=== PATIENT | male | born 1940 | race Caucasian/White ===

== ENCOUNTER → 2016-06-15 | Outpatient (CLI) | payer OTHER ==
[~2016-06-15] MED LIST: GADOBUTROL 10 ML VIAL IVP ONE
== END ==
LOC: FIMAGING 06:28
PROVIDERS: ATTEND Internal Medicine Hematology & Oncology
DX: Z08 Encounter for follow-up examination after completed treatment for malignant neoplasm (principal); C49.21 Malignant neoplasm of connective and soft tissue of right lower limb, including hip
CPT/HCPCS: 73720; A9585

== ENCOUNTER 2016-09-17 11:39 | Emergency (ER) | payer OTHER ==
[2016-09-17 11:52] VITALS: TEMP 98.1
[2016-09-17] MEDS ORDERED: NS 1,000 ML IV ONE (11:58)
--- NOTE | 2016-09-17 12:03 | EDPHY ---
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 He states that it is sharp and he was worried about his appendix. He has not had a fever. No flank pain or back pain. No radiation of the pain down to his testicle. No urinary difficulty. He does have a history of right inguinal hernia repair. 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 Also atrial fibrillation. He is hypoxic and dusky appearing but states that this is his baseline. He denies any increasing shortness of breath at rest or exertion. No recent fevers or worsening cough. REVIEW OF SYSTEMS: Constitutional: denies: chills, fever, recent illness, recent injury EENTM: denies: blurred vision, double vision, nose congestion Respiratory: denies: cough, shortness of breath Cardiac: denies: chest pain, irregular heart rate, lightheadedness, palpitations Gastrointestinal/Abdominal: See HPI denies: diarrhea, nausea, vomiting, blood streaked stools Genitourinary: denies: dysuria, frequency, hematuria, Musculoskeletal: denies: joint pain, muscle pain Skin: denies: lesions, rash, jaundice, bruising Neurological: denies: headache, numbness, paresthesia, tingling, dizziness, weakness Hematologic/Lymphatic: denies: blood clots, easy bleeding, easy bruising Immunologic/allergic: denies: HIV/AIDS, transplant EXAM: GENERAL: Obese, dusky appearing in extremities HEAD: Atraumatic, normocephalic. EYES: Pupils equal round and reactive to light, extraocular movements intact, sclera anicteric, conjunctiva are normal. ENT: TMs normal, nares patent, oropharynx clear without exudates. Moist mucous membranes. NECK: Normal range of motion, supple without lymphadenopathy or JVD. LUNGS: Breath sounds clear to auscultation bilaterally and equal. No wheezes rales or rhonchi. HEART: Regular rate and rhythm without murmurs, rubs or gallops. ABDOMEN: Right lower quadrant tenderness that is intermittent. No palpable hernia. normoactive bowel sounds. No guarding, no rebound. No masses appreciated. BACK: No CVA tenderness, no spinal tenderness, step-offs or deformities EXTREMITIES: Normal range of motion, no pitting or edema. No clubbing or cyanosis. NEUROLOGICAL: Cranial nerves II through XII grossly intact. Normal speech, normal gait. 5/5 strength, normal movement in all extremities, normal sensation PSYCH: Normal mood, normal affect. SKIN: Warm, dry, normal turgor, no visible rashes or lesions. Source: Patient Exam Limitations: No limitations - Medical/Surgical History Hx Chronic Respiratory Disease: Yes Hx Diabetes: No Hx Cardiac Disease: Yes Hx Renal Disease: No Hx Cirrhosis: No Hx Alcoholism: No Other PMH: Severe COPD with oxygen dependence and hypoxia, Afib, hernia repair, HTN, myxofibrosarcoma right thigh, hypertension - Family History Significant Family History: Hypertension - Social History Smoking Status: Former smoker Alcohol Use: Sober Drug Use: None Constitutional: Initial Vital Signs Temperature (C) 36.7 C 09/17/16 11:48 Heart Rate 111 H 09/17/16 11:48 Respiratory Rate 22 H 09/17/16 11:48 Blood Pressure 119/72 09/17/16 11:48 O2 Sat (%) 80 L 09/17/16 11:48 O2 Delivery Mode Nasal Cannula O2 (L/minute) 5 Allergies/Adverse Reactions: No Known Allergies Allergy (Unverified 09/17/16 11:48) Home Medications: Medication Instructions Recorded Albuterol Sulfate [ALBUTEROL 0.83 09/17/16 SULFATE] Aspirin 81mg (*) 09/17/16 Lisinopril/Hctz 20/12.5MG 09/17/16 Multi-Day Vitamins 09/17/16 Pulmicort 0.25MG/2Ml Neb (*) 09/17/16 Spiriva Inhaler (RX) 09/17/16 Vitamin B12 09/17/16 Vitamin D3 09/17/16 Medical Decision Making - Diagnostics Imaging Results: Imaging Impressions Abdomen CT 09/17/16 12:39 Impression: 1. No acute findings. 2. Diverticulosis without evidence of diverticulitis. 3. Pleural thickening with pleural calcification in the left chest, with mild interstitial prominence of the lower lobes. Consider CT chest for further follow up. 4. Stable right lower lobe nodular opacity since 2011 with interval stability compatible with a benign etiology. 5. Additional findings as above. Findings discussed with Ton Carreno 09/17/2016, at 1336 hours. Imaging: Discussed imaging studies w/ call or contact centre team leader Radiologist ED Course/Re-evaluation: We discussed the lab and imaging results which are very reassuring. The patient has no upper abdominal pain or left-sided abdominal pain. His right- sided inguinal pain is now resolved. He states that he has been lifting 40 lb bags of fertilizer may have pulled a muscle. Encouraged rest and hydration and re-evaluation if he continues to have pain within the next 48 hours. The patient understands and agrees with this plan. Declines further workup or testing is eager to go home. He remains slightly hypoxic and cyanotic but he states that this is baseline and he does not wish to be tested any further for this. Differential Diagnosis: Partial list of the Differential diagnosis considered include but were not limited to; appendicitis, hernia, kidney stone and although unlikely based on the history and physical exam, I also considered biliary disease, diverticulitis , obstruction, abscess, ischemia, dissection, pneumonia, PE, COPD exacerbation, acute coronary disease. I discussed these differential diagnoses and the plan with the patient as well as the usual and expected course. The patient understands that the diagnosis is provisional and that in medicine we are not always correct and that further workup is often warranted. Usual and customary warnings were given. All of the patient's questions were answered. The patient was instructed to return to the emergency department should the symptoms at all worsen or return, otherwise to followup with the physician as we discussed. - Data Points Laboratory Results: Laboratory Results 09/17/16 12:00 09/17/16 12:00 09/17/16 09/17/16 09/17/16 12:20 12:00 12:00 WBC RBC Hgb Hct MCV MCH MCHC RDW Plt Count MPV Neut % (Auto) Lymph % (Auto) Reagan % (Auto) Eos % (Auto) Baso % (Auto) Nucleat RBC Rel Count Absolute Neuts (auto) Absolute Lymphs (auto) Absolute Monos (auto) Absolute Eos (auto) Absolute Basos (auto) Absolute Nucleated RBC Immature Gran % Immature Gran # PT 12.9 SEC SEC (12.0-15.0) INR 1.00 (0.83-1.16) APTT 34.0 SEC SEC (23.0-38.0) Sodium 140 mEq/L mEq/L (134-144) Potassium 4.2 mEq/L mEq/L (3.5-5.2) Chloride 103 mEq/L mEq/L (97-110) Carbon Dioxide 25 mEq/l mEq/l (22-31) Anion Gap 12 mEq/L mEq/L (8-16) BUN 15 mg/dL mg/dL (7-23) Creatinine 0.7 mg/dL mg/dL (0.7-1.3) Estimated GFR > 60 Glucose 106 mg/dL H mg/dL (70-100) Calcium 9.8 mg/dL mg/dL (8.5-10.4) Total Bilirubin 2.0 mg/dL H mg/dL (0.1-1.4) Conjugated Bilirubin 0.4 mg/dL mg/dL (0.0-0.5) Unconjugated Bilirubin 1.6 mg/dL H mg/dL (0.0-1.1) AST 22 IU/L IU/L (17-59) ALT 27 IU/L IU/L (21-72) Alkaline Phosphatase 66 IU/L IU/L (38-126) Total Protein 7.6 g/dL g/dL (6.3-8.2) Albumin 4.1 g/dL g/dL (3.5-5.0) Lipase 138.0 IU/L IU/L (23-300) Urine Color YELLOW Urine Appearance CLEAR Urine pH 6.0 (5.0-7.5) Ur Specific [place] 1.010 (1.002-1.030) Urine Protein NEGATIVE (NEGATIVE) Urine Ketones NEGATIVE (NEGATIVE) Urine Blood NEGATIVE (NEGATIVE) Urine Nitrate NEGATIVE (NEGATIVE) Urine Bilirubin NEGATIVE (NEGATIVE) Urine Urobilinogen 0.2 EU EU (0.2-1.0) Ur Leukocyte Esterase NEGATIVE (NEGATIVE) Urine RBC 1-3 /hpf /hpf (0-3) Urine WBC 3-5 /hpf H /hpf (0-3) Ur Epithelial Cells TRACE /lpf /lpf (NONE-1+) Urine Bacteria TRACE /hpf H /hpf (NONE SEEN) Hyaline Casts 5-10 /lpf H /lpf (0-1) Urine Mucus 1+ /lpf /lpf (NONE-1+) Urine Glucose NEGATIVE (NEGATIVE) 09/17/16 12:00 WBC 7.79 10^3/uL 10^3/uL (3.80-9.50) RBC 6.85 10^6/uL H 10^6/uL (4.40-6.38) Hgb 18.6 g/dL H g/dL (13.7-17.5) Hct 57.5 % H % (40.0-51.0) MCV 83.9 fL fL (81.5-99.8) MCH 27.2 pg L pg (27.9-34.1) MCHC 32.3 g/dL L g/dL (32.4-36.7) RDW 16.1 % H % (11.5-15.2) Plt Count 279 10^3/uL 10^3/uL (150-400) MPV 10.5 fL fL (8.7-11.7) Neut % (Auto) 67.4 % % (39.3-74.2) Lymph % (Auto) 22.6 % % (15.0-45.0) Reagan % (Auto) 8.6 % % (4.5-13.0) Eos % (Auto) 0.5 % L % (0.6-7.6) Baso % (Auto) 0.8 % % (0.3-1.7) Nucleat RBC Rel Count 0.0 % % (0.0-0.2) Absolute Neuts (auto) 5.25 10^3/uL 10^3/uL (1.70-6.50) Absolute Lymphs (auto) 1.76 10^3/uL 10^3/uL (1.00-3.00) Absolute Monos (auto) 0.67 10^3/uL 10^3/uL (0.30-0.80) Absolute Eos (auto) 0.04 10^3/uL 10^3/uL (0.03-0.40) Absolute Basos (auto) 0.06 10^3/uL 10^3/uL (0.02-0.10) Absolute Nucleated RBC 0.00 10^3/uL 10^3/uL (0-0.01) Immature Gran % 0.1 % % (0.0-1.1) Immature Gran # 0.01 10^3/uL 10^3/uL (0.00-0.10) PT INR APTT Sodium Potassium Chloride Carbon Dioxide Anion Gap BUN Creatinine Estimated GFR Glucose Calcium Total Bilirubin Conjugated Bilirubin Unconjugated Bilirubin AST ALT Alkaline Phosphatase Total Protein Albumin Lipase Urine Color Urine Appearance Urine pH Ur Specific [place] Urine Protein Urine Ketones Urine Blood Urine Nitrate Urine Bilirubin Urine Urobilinogen Ur Leukocyte Esterase Urine RBC Urine WBC Ur Epithelial Cells Urine Bacteria Hyaline Casts Urine Mucus Urine Glucose Medications Given: Discontinued Medications Sodium Chloride (Ns) 1,000 mls @ 0 mls/hr IV ONCE ONE; Wide Open PRN Reason: Protocol Stop: 09/17/16 11:59 Last Admin: 09/17/16 12:20 Dose: 1,000 mls Departure - Departure Disposition: Home, Routine, Self-Care Clinical Impression: Abdominal pain Qualifiers: Abdominal location: right lower quadrant Qualified Code(s): R10.31 - Right lower quadrant pain Condition: Fair Instructions: Acute Abdominal Pain (ED) Referrals: Kelli Loera [Primary Care Provider] - As per Instructions
[2016-09-17 12:12] LABS: % IMMATURE GRANULYOCYTES 0.1 % (0.0-1.1); ABSOLUTE IMMATURE GRANULOCYTES 0.01 10^3/uL (0.00-0.10); ADD DIFF? NO; ADD MORPH? NO; ADD SCAN? NO; ATYPICAL LYMPHOCYTE FLAG 0 (0-99); FRAGMENT RBC FLAG 0 (0-99); HEMATOCRIT 57.5 % (40.0-51.0); HEMOGLOBIN 18.6 g/dL (13.7-17.5); LEFT SHIFT FLG 0 (0-99); LIPEMIA HEMOLYSIS FLAG 80 (0-99); MEAN CELL HEMOGLOBIN 27.2 pg (27.9-34.1); MEAN CELL HEMOGLOBIN CONCENTR. 32.3 g/dL (32.4-36.7); MEAN CELL VOLUME 83.9 fL (81.5-99.8); MEAN PLATELET VOLUME 10.5 fL (8.7-11.7); PLATELET CLUMPS FLAG 0 (0-99); PLATELET COUNT 279 10^3/uL (150-400); RED BLOOD CELL COUNT 6.85 10^6/uL (4.40-6.38); RED CELL DISTRIBUTION WIDTH 16.1 % (11.5-15.2)
[2016-09-17 12:24] LABS: PROTIME(PATIENT) 12.9 SEC (12.0-15.0)
[2016-09-17 12:27] LABS: ALANINE AMINOTRANSFERASE 27 IU/L (21-72); ALBUMIN 4.1 g/dL (3.5-5.0); ALKALINE PHOSPHATASE 66 IU/L (38-126); ANION GAP 12 mEq/L (8-16); ASPARTATE AMINOTRANSFERASE 22 IU/L (17-59); BILIRUBIN-CONJUGATED 0.4 mg/dL (0.0-0.5); BILIRUBIN-UNCONJUGATED 1.6 mg/dL (0.0-1.1); CALCIUM 9.8 mg/dL (8.5-10.4); CARBON DIOXIDE 25 mEq/l (22-31); CHLORIDE 103 mEq/L (97-110); CREATININE 0.7 mg/dL (0.7-1.3); GLOMERULAR FILTRATION RATE > 60; GLUCOSE 106 mg/dL (70-100); POTASSIUM 4.2 mEq/L (3.5-5.2); SODIUM 140 mEq/L (134-144); TOTAL PROTEIN 7.6 g/dL (6.3-8.2)
[2016-09-17 12:27] LABS: COLOR YELLOW; LEUKOCYTE ESTERASE,URINE NEGATIVE (NEGATIVE); NITRITE,URINE NEGATIVE (NEGATIVE)
[2016-09-17 12:45] LABS: BACTERIA TRACE /hpf (NONE SEEN); MUCUS 1+ /lpf (NONE-1+)
[2016-09-17] MEDS ORDERED: IOPAMIDOL (ISOVUE-300) 100 ML BTL ONE ×3 (12:49→12:50)
[2016-09-17 14:09] VITALS: BP 117/74; PULSE 78; RESP 18; O2SAT 91
== END 2016-09-17 13:47 | disposition home or self-care (01) ==
LOC: CED 11:39
DX: R10.31 Right lower quadrant pain (principal); J44.9 Chronic obstructive pulmonary disease, unspecified; I10 Essential (primary) hypertension; E86.9 Volume depletion, unspecified; Z79.82 Long term (current) use of aspirin; Z87.891 Personal history of nicotine dependence
CPT/HCPCS: 74177; 96360; 99285; Q9967; 80048-PO; 80076-PO; 81003-PO; 81015-PO; 83690-PO; 85025-PO; 85610-PO; 85730-PO

== ENCOUNTER → 2016-12-21 | Outpatient (CLI) | payer OTHER | LOC: FIMAGING 09:49 | PROVIDERS: ATTEND Internal Medicine Hematology & Oncology | DX: Z08 Encounter for follow-up examination after completed treatment for malignant neoplasm (principal); Z85.831 Personal history of malignant neoplasm of soft tissue | CPT/HCPCS: 73720; A9585 ==

== ENCOUNTER → 2017-06-24 | Outpatient (CLI) | payer OTHER | LOC: FIMAGING 12:40 | PROVIDERS: ATTEND Internal Medicine Hematology & Oncology | DX: C49.9 Malignant neoplasm of connective and soft tissue, unspecified (principal) | CPT/HCPCS: 73720; A9585 ==

== ENCOUNTER 2018-07-07 12:35 | Inpatient (IN) | payer OTHER ==
[2018-07-07] MEDS ORDERED: FUROSEMIDE 40 MG/4 ML VIAL IVP ONE ×2 (12:53→18:00)
--- NOTE | 2018-07-07 12:55 | EDPHY ---
H & P Stated Complaint: SOB Time Seen by Provider: 07/07/18 12:46 HPI/ROS: HPI CHIEF COMPLAINT: Shortness of breath, low oxygen level. 50% sat. HISTORY OF PRESENT ILLNESS: Patient is a 77-year-old male, he presents emergency room shortness of breath and low oxygen saturation. He apparently had a a oxygen saturation of 50% at his primary care doctor's office. He went to his primary care doctor's office today for bilateral lower extremity swelling. At the you doctor's office he was noted to be short of breath and labored breathing. O2 sat of 50%. He arrives to the emergency room and has an O2 sat of 50%. He has labored breathing. He initially went to his primary care doctor's office for bilateral lower extremity edema this progressively got worse over the past week. Is also noted that his weight is 223 lb. He typically runs 211 lb. Past Medical History: COPD on a 8L nasal cannula at baseline, significant medical history for hypertension, COPD rather severe, AFib Past Surgical History: No recent surgery Social History: Lives locally, at bedside. Family History: Noncontributory ROS REVIEW OF SYSTEMS: 10 Systems were reviewed and negative with the exception of the elements mentioned in the history of present illness. Exam Constitutional respiratory distress, triage nursing summary reviewed, vital signs reviewed, awake/alert. Initial sat 50%. 8 L nasal cannula. Eyes normal conjunctivae and sclera, EOMI, PERRLA. HENT normal inspection, atraumatic, moist mucus membranes, no epistaxis, neck supple/ no meningismus, no raccoon eyes. Respiratory moderate distress, decreased breath sounds bilaterally, crackles at the bases bilaterally, Cardiovascular rate normal, regular rhythm, no murmur, no edema, distal pulses normal. Gastrointestinal soft, non-tender, no rebound, no guarding, normal bowel sounds, no distension, no pulsatile mass. Genitourinary no CVA tenderness. Musculoskeletal bilateral lower extremity pitting edema, no midline vertebral tenderness, full range of motion, no calf swelling, no tenderness of extremities , no meningismus, good pulses, neurovascularly intact. Skin pink, warm, & dry, no rash, skin atraumatic. Neurologic awake, alert and oriented x 3, AAOx3, moves all 4 extremities equally, motor intact, sensory intact, CN II-XII intact, normal cerebellar, normal vision, normal speech. Psychiatric normal mood/affect. Heme/Lymph/Immune no lymphadenopathy. Differential Diagnosis: Includes but is not limited to in a particular order respiratory failure, who acute hypoxic respiratory failure, pulmonary edema, pneumonia, CHF, COPD, PE, ACS Medical Decision Making: Plan for this patient IV establishment with blood draw , blood cultures, lactic acid, BiPAP, ABG, EKG, troponin, chest x-ray. Re-evaluation: EKG interpretation by me on record in [facility] system. Impression time of EKG 12:54 p.m. Sinus tach [address] depression V1 V2 V3 most likely demand ischemia and hypoxia ST depression Due to patient's respiratory distress, breathing 30 times a minute, hypoxic requiring a non-rebreather patient been placed on BiPAP. Current BiPAP settings 14/7, FiO2 40%, rate of 18. ABG pending. In-line neb ordered. Chest x-ray reviewed one-view cardiomegaly, bilateral pleural effusions, pulmonary edema. 1336: Patient on full face BiPAP resting comfortably no acute distress. Chest x-ray shows significant amount of edema. IV Lasix 40 mg ordered. Plan for admission to the ICU on full face BiPAP. Critical Care: Total Critical Care Time Spent Managing this Patient: 65 Minutes. This time was spent Exclusively with this patient. This Care was exclusive of procedures. The Organ System/life at risk was respiratory failure This Patient was in Critical Condition because respiratory failure, hypoxic respiratory failure, CHF, COPD I spoke with the hospitalist service and agreed admit to the intensive care unit on full face BiPAP. Dr. Spicer. 1400 I did re-evaluate the patient is resting comfortably he is comfortable on BiPAP. His current vitals heart rate 133, pulse ox 90% on BiPAP FiO2 of 40%, Blood pressure 114/91. No distress. Good air movement bilaterally with bipap Chest x-ray concerning for decompensated heart failure in the setting of COPD at baseline. Troponin negative. EKG interpretation by me on record in [employer] system. Impression time of EKG 1404 this is a repeat EKG sinus tach 133, RVH present. Subtle ST depression V1 V2 V3. No ST elevation Source: Patient - Personal History Current Tetanus/Diphtheria Vaccine: Yes Current Tetanus Diphtheria and Acellular Pertussis (TDAP): Yes - Medical/Surgical History Hx Chronic Respiratory Disease: Yes Hx Diabetes: No Hx Cardiac Disease: Yes Hx Renal Disease: No Hx Cirrhosis: No Hx Alcoholism: No Other PMH: Severe COPD with oxygen dependence and hypoxia, Afib, hernia repair, HTN, myxofibrosarcoma right thigh, hypertension - Social History Smoking Status: Former smoker Constitutional: Initial Vital Signs Heart Rate 130 H 07/07/18 12:46 Respiratory Rate 20 07/07/18 12:46 Blood Pressure 121/81 H 07/07/18 12:46 O2 Sat (%) 84 L 07/07/18 12:46 O2 Delivery Mode Bi-Pap O2 (L/minute) 8 Allergies/Adverse Reactions: No Known Allergies Allergy (Verified 07/07/18 13:35) Home Medications: Medication Instructions Recorded Aspirin [Aspirin 81mg (*)] 81 mg PO DAILY 09/17/16 Cholecalciferol Vit D3 [Vitamin D3 5,000 units PO DAILY 09/17/16 (*)] Cyanocobalamin [Vitamin B12 (*)] 1,000 mcg PO DAILY 09/17/16 Lisinopril/Hctz 20/12.5MG 1 ea PO DAILY 09/17/16 [Zestoretic/Prinzide 20/12.5MG (*)] Tiotropium Inhaler [Spiriva 1 inh IH DAILY 09/17/16 Inhaler] Albuterol [Proventil Neb] 3 ml IH DAILY 07/07/18 Fluticasone/Vilanterol [Breo 1 each IH DAILY 07/07/18 Ellipta 200-25 Mcg INH] guaiFENesin [Mucinex 600 MG (*)] 600 mg PO BID 07/07/18 Medical Decision Making - Data Points Laboratory Results: Laboratory Results 07/07/18 13:00 07/07/18 13:00 Microbiology Results: MICROBIOLOGY 07/07/18 13:00 Blood Blood Culture - Preliminary 07/07/18 13:00 Blood Blood Culture - Preliminary Medications Given: Albuterol (Proventil Neb) 3 ml IH Q2HRS PRN PRN Reason: Short of Breath/Dyspnea Stop: 01/03/19 14:19 Last Admin: 07/09/18 08:45 Dose: 3 ml Aspirin (Aspirin) 81 mg PO DAILY GERTRUDIS Stop: 01/04/19 08:59 Last Admin: 07/09/18 13:01 Dose: 81 mg Enoxaparin Sodium (Lovenox) 100 mg SC BID GERTRUDIS Stop: 07/10/18 07:00 Last Admin: 07/09/18 08:34 Dose: 100 mg Guaifenesin (Mucinex) 600 mg PO BID GERTRUDIS Stop: 01/03/19 20:59 Last Admin: 07/09/18 10:58 Dose: Not Given Lisinopril/HCTZ (Zestoretic) 1 ea PO DAILY GERTRUDIS Stop: 01/04/19 08:59 Last Admin: 07/09/18 13:04 Dose: 1 ea Miscellaneous Medication (Fluticasone/Vilanterol [Breo Ellipta 200-25 Mcg Inh]) 1 each IH DAILY GERTRUDIS Stop: 01/04/19 08:59 Last Admin: 07/09/18 08:46 Dose: 1 inh Tiotropium [place] (Spiriva Handihaler) 18 mcg IH DAILY GERTRUDIS Stop: 01/04/19 08:59 Last Admin: 07/09/18 08:46 Dose: 1 inh Discontinued Medications Albuterol/Ipratropium (Duoneb) 3 ml IH EDNOW ONE Stop: 07/07/18 12:58 Last Admin: 07/07/18 13:21 Dose: 3 ml Amiodarone HCl (Amiodarone Hcl) 200 mg PO ONCE ONE Stop: 07/09/18 15:16 Last Admin: 07/09/18 17:17 Dose: 200 mg Enoxaparin Sodium (Lovenox) 40 mg SC DAILY GERTRUDIS Stop: 01/04/19 08:59 Last Admin: 07/08/18 08:14 Dose: 40 mg Enoxaparin Sodium (Lovenox) 60 mg SC ONCE ONE Stop: 07/08/18 10:46 Last Admin: 07/08/18 11:10 Dose: 60 mg Famotidine (Pepcid) 20 mg PO BID GERTRUDIS Stop: 01/04/19 08:59 Last Admin: 07/08/18 08:13 Dose: 20 mg Furosemide (Lasix Injection) 40 mg IVP EDNOW ONE Stop: 07/07/18 12:54 Last Admin: 07/07/18 13:14 Dose: 40 mg Furosemide (Lasix Injection) 40 mg IVP ONCE ONE Stop: 07/07/18 18:01 Last Admin: 07/07/18 17:01 Dose: 40 mg Furosemide (Lasix Injection) 40 mg IVP ONCE ONE Stop: 07/08/18 11:28 Last Admin: 07/08/18 12:21 Dose: 40 mg Famotidine/Sodium Chloride (Pepcid 20 Mg (Premix)) 50 mls @ 200 mls/hr IV Q12HRS GERTRUDIS Stop: 01/03/19 20:59 Last Admin: 07/07/18 21:43 Dose: 50 mls Amiodarone HCl (Amiodarone Hcl) 100 mls @ 600 mls/hr IV ONCE ONE Stop: 07/08/18 15:41 Last Admin: 07/08/18 15:45 Dose: 100 mls Amiodarone HCl (Amiodarone Hcl) 200 mls @ 33.333 mls/hr IV ONCE ONE Stop: 07/08/18 21:31 Last Admin: 07/08/18 15:46 Dose: 200 mls Amiodarone HCl 540 mg/ (Dextrose) 300 mls @ 16.667 mls/hr IV ONCE ONE Stop: 07/09/18 15:29 Last Admin: 07/08/18 20:48 Dose: 300 mls Methylprednisolone Sodium Succinate (Solu-Medrol) 125 mg IVP EDNOW ONE Stop: 07/07/18 13:08 Last Admin: 07/07/18 13:14 Dose: 125 mg Point of Care Test Results: Chemistry 07/07/18 13:05 POC Troponin I 0.03 ng/mL ng/mL (0.00-0.08) Departure - Departure Disposition: [facility] Clinical Impression: Respiratory failure Qualifiers: Chronicity: acute Respiratory failure complication: hypoxia Qualified Code(s): J96.01 - Acute respiratory failure with hypoxia COPD (chronic obstructive pulmonary disease) Qualifiers: COPD type: unspecified COPD Qualified Code(s): J44.9 - Chronic obstructive pulmonary disease, unspecified CHF (congestive heart failure) Qualifiers: Heart failure type: other Qualified Code(s): I50.9 - Heart failure, unspecified Condition: Critical
[2018-07-07] MEDS ORDERED: IPRATROPIUM/ALBUTEROL 3 ML DEYVIAL IH ONE (12:57)
[2018-07-07] MEDS ORDERED: methylPREDNISolone SOD SUCC 125 MG/2 ML VIAL IVP ONE (13:07)
[2018-07-07 13:14] LABS: PLATELET COUNT 208 10^3/uL (150-400)
[2018-07-07 13:29] LABS: INR 1.17 (0.83-1.16); PROTIME(PATIENT) 14.4 SEC (12.0-15.0)
[2018-07-07] MEDS ORDERED: ACETAMINOPHEN 325 MG TAB PO PRN (14:17)
--- NOTE | 2018-07-07 14:57 | PDGENHP ---
History and Physical - Chief Complaint leg swelling, hypoxia - History of Present Illness 77yo M with history of COPD, pulmonary hypertension, PFO, chronic O2 dependence who presents from his PCP clinic to the ED with leg swelling and hypoxia. He went to his PCP's office today because he has had 8 days of worsening bilateral leg swelling. At his PCP's office he had oxygen saturations in the 50s and was sent to the ED. His O2 saturation on arrival was also in the 50s on his baseline 9L of supplemental oxygen and appeared in distress. He was then placed on bipap with improvement in oxygenation. A chest x-ray shows prominence of pulmonary vasculature and a small left pleural effusion. He was given 40mg IV lasix and is being admitted for further management. He denies any recent fevers , chills, or change in cough (has baseline cough productive of yellow sputum). He denies chest pain, palpitations, orthopnea, or PND. He has not been on lasix in the past. Of note, his oxygen saturations are typically 82-86% at rest and in the 70s with exertion on 9L of oxygen at home. His reports having to increase from 5L to 8-9L last summer. History Information - Allergies/Home Medication List Allergies/Adverse Reactions: No Known Allergies Allergy (Verified 07/07/18 13:35) Home Medications: Aspirin [Aspirin 81mg (*)] 81 mg PO DAILY 09/17/16 [Last Taken 07/07/18] Cholecalciferol Vit D3 [Vitamin D3 (*)] 5,000 units PO DAILY 09/17/16 [Last Taken 07/07/18] Cyanocobalamin [Vitamin B12 (*)] 1,000 mcg PO DAILY 09/17/16 [Last Taken ] Lisinopril/Hctz 20/12.5MG [Zestoretic/Prinzide 20/12.5MG (*)] 1 ea PO DAILY [Last Taken 07/07/18] Tiotropium Inhaler [Spiriva Inhaler] 1 inh IH DAILY 09/17/16 [Last Taken ] Albuterol [Proventil Neb] 3 ml IH DAILY 07/07/18 [Last Taken 07/07/18] Fluticasone/Vilanterol [Breo Ellipta 200-25 Mcg INH] 1 each IH DAILY 07/07/18 [ Last Taken 07/07/18] guaiFENesin [Mucinex 600 MG (*)] 600 mg PO BID 07/07/18 [Last Taken 07/07/18] I have personally reviewed and updated: family history, medical history, social history, surgical history - Past Medical History Additional medical history: COPD (FEV1 55%, fixed obstruction), chronic O2 dependence, pulmonary hypertension (RVSP 70s), valvular heart disease (TR), patent foramen ovale, atrial fibrillation s/p DCCV in 2014 with no recurrence, grade I diastolic dysfunction - Surgical History Reports: no pertinent surgical hx - Family History Positive for: non-pertinent - Social History Smoking Status: Former smoker Alcohol Use: None Drug Use: None Additional social history: Lives locally with , who is at bedside. Review of Systems Review of Systems: ROS: 10pt was reviewed & negative except for what was stated in HPI & below Physical Exam Physical Exam: Temp Pulse Resp BP Pulse Ox 36.8 C 131 H 20 122/85 H 94 07/07/18 13:16 07/07/18 14:38 07/07/18 14:38 07/07/18 14:38 07/07/18 14:38 Constitutional: no apparent distress, appears nourished, not in pain Eyes: PERRL, anicteric sclera, EOMI Ears, Nose, Mouth, Throat: moist mucous membranes, hearing normal, ears appear normal, no oral mucosal ulcers Cardiovascular: regular rate and rhythym, no murmur, rub, or gallop, JVD ( difficult to assess 2/2 PPV and habitus), edema (2+ BLE to knees) Respiratory: reduced air movement, inspiratory crackles (bilateral bases), No expiratory wheeze Gastrointestinal: normoactive bowel sounds, soft, non-tender abdomen, no palpable masses Genitourinary: no bladder fullness, no bladder tenderness Skin: warm, normal color, no rashes or abrasions, no fluctuance, no induration, No mottled Musculoskeletal: full muscle strength, no muscle tenderness, normal joint ROM, no joint effusions Neurologic: AAOx3 Psychiatric: interacting appropriately, not anxious, not encephalopathic, thought process linear Lab Data & Imaging Review 07/07/18 13:00 07/07/18 13:00 WBC 8.14 10^3/uL (3.80-9.50) 07/07/18 13:00 RBC 6.10 10^6/uL (4.40-6.38) 07/07/18 13:00 Hgb 17.1 g/dL (13.7-17.5) 07/07/18 13:00 Hct 54.9 % (40.0-51.0) H 07/07/18 13:00 MCV 90.0 fL (81.5-99.8) 07/07/18 13:00 MCH 28.0 pg (27.9-34.1) 07/07/18 13:00 MCHC 31.1 g/dL (32.4-36.7) L 07/07/18 13:00 RDW 17.6 % (11.5-15.2) H 07/07/18 13:00 Plt Count 208 10^3/uL (150-400) 07/07/18 13:00 MPV 11.4 fL (8.7-11.7) 07/07/18 13:00 Neut % (Auto) 72.9 % (39.3-74.2) 07/07/18 13:00 Lymph % (Auto) 15.6 % (15.0-45.0) 07/07/18 13:00 [place] % (Auto) 10.0 % (4.5-13.0) 07/07/18 13:00 Eos % (Auto) 0.2 % (0.6-7.6) L 07/07/18 13:00 Baso % (Auto) 1.1 % (0.3-1.7) 07/07/18 13:00 Nucleat RBC Rel Count 0.0 % (0.0-0.2) 07/07/18 13:00 Absolute Neuts (auto) 5.93 10^3/uL (1.70-6.50) 07/07/18 13:00 Absolute Lymphs (auto) 1.27 10^3/uL (1.00-3.00) 07/07/18 13:00 Absolute Monos (auto) 0.81 10^3/uL (0.30-0.80) H 07/07/18 13:00 Absolute Eos (auto) 0.02 10^3/uL (0.03-0.40) L 07/07/18 13:00 Absolute Basos (auto) 0.09 10^3/uL (0.02-0.10) 07/07/18 13:00 Absolute Nucleated RBC 0.00 10^3/uL (0-0.01) 07/07/18 13:00 Immature Gran % 0.2 % (0.0-1.1) 07/07/18 13:00 Immature Gran # 0.02 10^3/uL (0.00-0.10) 07/07/18 13:00 PT 14.4 SEC (12.0-15.0) 07/07/18 13:00 INR 1.17 (0.83-1.16) H 07/07/18 13:00 APTT 35.6 SEC (23.0-38.0) 07/07/18 13:00 Puncture Site Not Reported 07/07/18 13:00 Patient Temperature 37.0 DEGREES 07/07/18 13:00 pCO2 48 mmHg (34-38) H 07/07/18 13:00 pO2 129 mmHg (65-75) H 07/07/18 13:00 Total CO2 29 mEq/L (23-27) H 07/07/18 13:00 ABG pH 7.38 (7.35-7.45) 07/07/18 13:00 ABG HCO3 28 mEq/L (22-26) H 07/07/18 13:00 ABG O2 Saturation 99 % (92-95) H 07/07/18 13:00 ABG Base Excess 2.0 mEq/L (-2.5-2.5) 07/07/18 13:00 VBG Lactic Acid 1.6 mmol/L (0.7-2.1) 07/07/18 13:56 Total O2 Concentration 15.0 LITERS 07/07/18 13:00 O2 Concentration % MASK % (0-100) 07/07/18 13:00 Sodium 142 mEq/L (135-145) 07/07/18 13:00 Potassium 4.3 mEq/L (3.5-5.2) 07/07/18 13:00 Chloride 102 mEq/L (97-110) 07/07/18 13:00 Carbon Dioxide 29 mEq/l (22-31) 07/07/18 13:00 Anion Gap 11 mEq/L (6-14) 07/07/18 13:00 BUN 18 mg/dL (7-23) 07/07/18 13:00 Creatinine 0.7 mg/dL (0.7-1.3) 07/07/18 13:00 Estimated GFR > 60 07/07/18 13:00 Glucose 111 mg/dL (70-100) H 07/07/18 13:00 Calcium 9.7 mg/dL (8.5-10.4) 07/07/18 13:00 Magnesium 1.8 mg/dL (1.6-2.3) 07/07/18 13:00 Total Bilirubin 1.9 mg/dL (0.1-1.4) H 07/07/18 13:00 Conjugated Bilirubin 0.2 mg/dL (0.0-0.5) 07/07/18 13:00 Unconjugated Bilirubin 1.7 mg/dL (0.0-1.1) H 07/07/18 13:00 AST 26 IU/L (17-59) 07/07/18 13:00 ALT 27 IU/L (21-72) 07/07/18 13:00 Alkaline Phosphatase 69 IU/L (38-126) 07/07/18 13:00 POC Troponin I 0.03 ng/mL (0.00-0.08) 07/07/18 13:05 NT-Pro-B Natriuret Pep 370 pg/mL (0-450) 07/07/18 13:00 Total Protein 7.4 g/dL (6.3-8.2) 07/07/18 13:00 Albumin 4.2 g/dL (3.5-5.0) 07/07/18 13:00 Lipase 189 IU/L (23-300) 07/07/18 13:00 Interpretation: CXR: Impression: 1. Small left effusion has developed with some dependent edema suspected. Consider fluid overload. 2. Stable cardiomegaly with prominence of pulmonary vasculature. There could be underlying. pulmonary hypertension. 3. Chronic interstitial lung disease. EKG additional interpertation: ECG: sinus tachycardia, normal axis, RVH with repol abnormalities, normal intervals, no ST elevation (reviewed by me) Assessment & Plan Assessment: 77yo M with history of COPD, pulmonary hypertension, PFO, chronic O2 dependence who presents from his PCP clinic to the ED with leg swelling and hypoxemia. Plan: #Acute on chronic hypoxemic respiratory failure: Suspect R->L intracardiac shunt and subsequent pulmonary edema in setting of his rather severe pHTN and PFO. His oxygen saturations do not drastically improve with supplemental oxygen , consistent with shunt physiology. He chronically wears 8-9L. - Continue BiPAP - TTE - s/p lasix in ED, will order another dose of lasix for this evening - Consulted pulmonology and cardiology. Query any utility in PFO repair at this point or advanced pulmonary hypertension therapies. If patient is not candidate or does not want any of these, reasonable to consult palliative care/ hospice. #Bilateral leg edema: 2/2 right heart volume overload. #COPD: Does not have obstructive physiology. Continue home inhalers. #Valvular heart disease: Mild TR noted on last echo. #Intracardiac shunt: First noted on 2013 MARIAA. Also noted on 2018 TTE w/bubble. He has declined surgery for this in the past. #Pulmonary hypertension: RVSP 72mmHg. Due to chronic hypoxia and intracardiac shunt could contribute. #Polycythemia: Likely secondary. Treating with oxygen. #H/o atrial fibrillation: One episode in 2014 s/p successful DCCV. No recorded recurrence since. Has declined systemic anticoagulation. Continue aspirin 81mg daily. #HTN: Continue home lisinopril/hctz. VTE ppx: LMWH Code: DNR/DNI per discussion with patient and Dispo: Admit as inpatient to step down unit
--- NOTE | 2018-07-07 16:33 | ECHO ---
[email or web address] [address] [address] Main: [phone] Echocardiography Examination Transthoracic Name: JAYESH LOMAS MR#: [id number] Study Date: 07/07/2018 Study Time: 03:21 PM Date of : 1940 Age: 77 year(s) Height: 172.7 cm (68 in.) Weight: 101.15 kg (223 lb.) BSA: 2.14 m2 Gender: Male Examination: Echo Contrast: Image Quality: Rhythm: Tachycardia Heart Rate: 131 bpm BP: 138 mmHg/99 mmHg Indication: Acute Respiratory failure, BiPap Procedure Staff Referring Physician: Motorboat Mechanic Helper: Jet Leigh RDCS Reading Physician: Domingo Baker MD Requesting Provider: Ordering Physician: Oneal Matthews Indication: Acute Respiratory failure, BiPap Measurements Chambers AV/MV Label Value Normal Value Label Value Normal Value LVOT Vmax 0.62 m/s (0.7m/s - 1.1m/s) AV PGmax 6 mmHg LVOTd 2.1 cm (1.9cm - 2.1cm) AV PGmean 3 mmHg LVOT VTI 9.56 cm (18cm - 22cm) AV Vmax 1.19 m/s LVDd, 2D 4.2 cm (4.2cm - 5.9cm) YULISSA (Vmax) 1.8 cm2 LVDs, 2D 2.4 cm (2.1cm - 4cm) YULISSA (VTI) 2 cm2 IVSd, 2D 1 cm (0.6cm - 1.1cm) MV E Vmax 0.78 m/s LVPWd, 2D 1 cm (0.6cm - 1cm) MV A Vmax 0.28 m/s LVEF, 2D 73 % (54% - 74%) MV E/A 2.79 LVOT PGmean 1 mmHg MV E/E' lateral 7.8 LVOT Vmean 0.37 m/s MV E/E' septal 13.7 (0.45 - 1.25) RVDd, 2D 4.2 cm (1.9cm - 3.8cm) MV E' septal 0.06 m/s LA Volume, BP 90 ml (18ml - 58ml) MV E' lateral 0.1 m/s LADs, 2D 4.2 cm (3cm - 4cm) MV E/E' mean 9.75 LAESV index, BP 42.1 ml/m2 MV E' mean 0.08 m/s Additional Vessels TV/PV Label Value Normal Value Label Value Normal Value AoRoot, MM 3.4 cm (2.2cm - 3.7cm) RA Pressure 10 mmHg RVSP 48 mmHg TR Pmax 38 mmHg Patient: JAYESH LOMAS Study Date: 07/07/2018 Page 1 of 2 03:21 PM TR Vmax 3.08 m/s PV PGmax 4 mmHg PV Vmax, Caliper 1.02 m/s (0.6m/s - 0.9m/s) Conclusions 1. The left ventricle is normal in size with hyperdynamic left ventricular systolic function. 2. The mitral valve is normal in structure. There is trivial mitral regurgitation. 3. The aortic valve is not well seen. There is no aortic stenosis or insufficiency by Doppler. 4. The right ventricle is mildly dilated in size with mildly reduced systolic function. 5. The pulmonary artery pressure estimate is 48 mm of mercury. 6. When compared to the 08/26/2017 study the pulmonary artery pressure decreased from 72 mm of mercury to 48 mm of mercury. Findings Left Ventricle: Left ventricle is normal in size. Global hypercontractility of the left ventricle. Left ventricle wall thickness is normal. There are no regional wall motion abnormalities. Grade I Diastolic Dysfunction. Right Ventricle: The pulmonary pressures are most likely underestimated due to patients heart rate.. Mildly dilated right ventricle. Right ventricular systolic function is mildly reduced. Left Atrium: The left atrium is moderately dilated. Right Atrium: The right atrium is normal in size. Mitral Valve: Mitral valve appears structurally normal. Trivial mitral regurgitation. Aortic Valve: Aortic valve is poorly visualized. No aortic valve regurgitation. There is no aortic stenosis. Tricuspid Valve: Mild tricuspid regurgitation. Right Ventricular systolic pressure is measured at 48 mmHg. Pulmonary artery pressure moderately increased. Aorta: The aorta is normal. The aortic root size in M-mode measures 3.4 cm. Aorta Measurements AoRoot, MM is 3.4 cm. Pericardium: No pericardial effusion. Exam Details Procedure Ordered: Echo (No Signature Object) Patient: JAYESH LOMAS Study Date: 07/07/2018 Page 2 of 2 03:21 PM [id number]
--- NOTE | 2018-07-07 16:41 | PDMN ---
Medical Necessity Medical necessity: [facility] M100 COPD, A-2 days: 77 yo w/ BLE swelling and hypoxia w / sats in 50s on baseline O2 of 9L. Pt in acute on chronic hypoxemic respiratory failure: Suspect R->L intracardiac shunt and subsequent pulmonary edema in setting of his rather severe pHTN and PFO. pCO2 48. Tachypneac. BIPAP started, TTE, IV Lasix, pulm and cardio consults. BC & resp panel pending. Meets [facility] IP criteria for COPD w/ worsening s/sx, worsening of pre- existing hypoxemia, pCO2>40, tachypnea. Anticipate>2MN for ongoing management of the above. Hx COPD, Pulm HTN, PFO, chronic O2
[2018-07-07] MEDS ORDERED: IPRATROPIUM/ALBUTEROL 3 ML DEYVIAL IH SCH (18:00)
[2018-07-07] MEDS ORDERED: FAMOTIDINE 20 MG/NACL 50 ML IV SCH (21:00)
[2018-07-07] MEDS: guaiFENesin 600 MG TAB.ER PO SCH (21:43)
[2018-07-08 05:23] LABS: PLATELET COUNT 214 10^3/uL (150-400)
[2018-07-08] MEDS: guaiFENesin 600 MG TAB.ER PO SCH ×2 (08:13→20:40)
[2018-07-08] MEDS: ASPIRIN 81 MG CHEWABLE TAB PO SCH (08:13)
[2018-07-08] MEDS: LISINOPRIL/HCTZ 20/12.5MG 1 EA TAB PO SCH (08:13)
[2018-07-08] MEDS ORDERED: FAMOTIDINE 20 MG TAB PO SCH (09:00)
[2018-07-08] MEDS ORDERED: ENOXAPARIN 40 MG/0.4 ML SYR SC SCH (09:00)
[2018-07-08] MEDS: (Fluticasone/Vilanterol [Breo Ellipta 200-25 Mcg Inh] 1 EACH) IH SCH (10:08)
[2018-07-08] MEDS: TIOTROPIUM INHALER 18 MCG/DOSE 5 DOSE/MDI IH SCH (10:09)
--- NOTE | 2018-07-08 10:35 | HOSPPROG ---
Hospitalist Progress Note Assessment/Plan: 77yo M with history of COPD, pulmonary hypertension, PFO, chronic high O2 dependence who presents from his PCP clinic to the ED with leg swelling and hypoxemia. He has been persistently tachycardic and thought to be in atrial flutter. #Atrial flutter w/2:1 conduction - Cardiology planning on MARIAA-guided DCCV today - Starting lovenox 100mg BID #Acute on chronic hypoxemic respiratory failure: Thought d/t underlying COPD. Question whether PFO is also contributing (R->L shunt) vs other process such as ILD. - Right heart cath per cards (possibly tomorrow) to determine hemodynamic significance of PFO - Pulm consulted. Ordered high res chest CT #Acute diastolic CHF and leg edema: Precipitated by elevated HR - Give additional 40mg IV lasix x1 today #Pulmonary hypertension: RVSP 48, previously 72 on prior echo but may be falsely low in setting of tachycardia - Appreciate pulm input. Unclear if all related to chronic hypoxemia vs WHO class 1 process (PAH) #PFO: As above, unclear if this is significant/causing his worsening hypoxia with Eisenmegner physiology. Additionally, this may be a "relief valve" for his RV in setting of his pulmonary hypertension and closing it could potentially cause his RV to fail. RHC will hopefully help sort this out. #Polycythemia: Suspect secondary d/t hypoxia but was previously seeing a wall attendant (Dr Falcon). Attempting to obtain records. #COPD: Does not have obstructive physiology. Continue home inhalers. #Valvular heart disease: Mild TR noted on echo. #H/o atrial fibrillation: One episode in 2014 s/p successful DCCV. No recorded recurrence since. Not previously on OAC. #HTN: Continue home lisinopril/hctz. VTE ppx: LMWH Code: limited, no intubation per discussion, ok w/CPR Dispo: Remain in step down unit Subjective: Leg swelling slightly better, net negative about 1.5L yesterday. No difficulty breathing. Objective: Vital Signs Temp Pulse Resp BP Pulse Ox 36.4 C 129 H 21 H 116/87 H 90 L 07/08/18 07:26 07/08/18 07:26 07/08/18 07:26 07/08/18 07:26 07/08/18 07:26 Microbiology 07/07/18 15:22 Respiratory Panel (PCR) - Final Nasal, Sinus - Swab No Organism Detected By Pcr Laboratory Results 07/08/18 05:03 07/08/18 05:03 07/07/18 07/08/18 07/09/18 05:59 05:59 05:59 Intake Total 300 Output Total 1650 Balance -1350 PT 14.4 SEC (12.0-15.0) 07/07/18 13:00 INR 1.17 (0.83-1.16) H 07/07/18 13:00 - Physical Exam Constitutional: no apparent distress, appears nourished, not in pain Eyes: PERRL, anicteric sclera, EOMI Ears, Nose, Mouth, Throat: moist mucous membranes, hearing normal, ears appear normal, no oral mucosal ulcers Cardiovascular: no murmur, rub, or gallop, tachycardia, edema Respiratory: reduced air movement (bases), No expiratory wheeze, No inspiratory crackles Gastrointestinal: normoactive bowel sounds, soft, non-tender abdomen, no palpable masses Genitourinary: no bladder fullness, no bladder tenderness, no renal bruits Skin: no rashes or abrasions, no fluctuance, no induration Musculoskeletal: full muscle strength, no muscle tenderness, normal joint ROM Neurologic: AAOx3, sensation intact bilaterally Psychiatric: interacting appropriately ICD10 Worksheet Patient Problems: Problems Problem Status Onset CHF (congestive heart failure) Acute COPD (chronic obstructive pulmonary disease) Acute Respiratory failure Acute
[2018-07-08] MEDS ORDERED: ENOXAPARIN 100 MG/ML SYR SC SCH (10:45)
[2018-07-08] MEDS ORDERED: ENOXAPARIN 60 MG/0.6 ML SYR SC ONE (10:45)
--- NOTE | 2018-07-08 10:51 | GCON ---
[f rep st] CONSULTATION DATE OF CONSULTATION: 07/08/2018 CHIEF COMPLAINT: We have been asked by Dr. Matthews to evaluate the patient with hypoxemia and lower extremity edema. HISTORY OF PRESENT ILLNESS: The patient is a 77-year-old gentleman with a history of COPD, pulmonary hypertension, and a patent foramen ovale who presents with hypoxemia and lower extremity edema. The patient was in his usual state of health until approximately 2 weeks prior to admission, when he not ed the abrupt onset of increased lower extremity edema. The patient denies any obvious precipitating factors. The patient does have a history of COPD. He is on chronic oxygen therapy. His oxygen sat urations typically run 82-86 percent at rest and decrease to the 70s with exertion. The patient also has a history of atrial flutter and is status post DC cardioversion in 2013. His EKG on admission d emonstrates a narrow complex regular rhythm at 131 beats per minute suggestive of atrial flutter with 2:1 AV block. The patient denies symptoms of chest pain, orthopnea, and PND. The patient has been taking all of his medications. PAST MEDICAL HISTORY: 1. COPD. 2. Hypertension. 3. Patent foramen ovale. 4. Atrial flutter. 5. Polycythemia. MEDICATIONS: Please see medicine reconciliation form. ALLERGIES: No known drug allergies. SOCIAL HISTORY: Patient lives at home with his . He no longer smokes. He denies problems with alcohol. FAMILY HISTORY: Noncontributory. REVIEW OF SYSTEMS: 10-point review of systems is negative except as noted in HPI. PHYSICAL EXAMINATION: GENERAL: The patient is resting comfortably in a chair. He does not appear t o be in acute distress. VITAL SIGNS: Temperature is afebrile. Pulse is 130, blood pressure 116/87, respiratory rate is 21, SaO2 is 90% on 15 L of oxygen. HEENT: Normocephalic, atraumatic. Extraocu lar muscles intact. NECK: Positive JVD. No bruits. LUNGS: Diminished breath sounds bilaterally. CARDIOVASCULAR: Tachycardia. Regular rhythm. S1, S2. Grade 2/6 holosystolic murmur is noted at t he left sternal border. ABDOMEN: Obese, nontender. Normoactive bowel sounds. No hepatosplenomegal y noted. SKIN: No evidence of rashes. NEURO: Patient is awake, alert, and oriented x3. EXTREMITI ES: Moderate bilateral lower extremity edema. LABORATORY: White blood cell count is 6.10, hemoglobin is 15.9, hematocrit is 52.1, platelet count i s 214. Sodium 141, potassium 4.4, chloride is 102, CO2 29, BUN 24, creatinine 0.8. Troponin within normal limits x1. BNP is 370. INR is 1.17. EKG demonstrates atrial flutter with 2:1 AV block. Patient does have a right bundle branch block, as well as right ventricular hypertrophy. There is an S1Q3T3. Echocardiogram demonstrates hyperdynami c left ventricular systolic function, right ventricular dilation with reduced systolic function. The pulmonary artery pressure estimate is 48 mmHg. ASSESSMENT AND PLAN: Mr. Verde is a 77-year-old gentleman with: 1. Lower extremity edema. Patient presents with a 2-week history of increased lower extremity edema . This is likely secondary to a combination of diastolic heart failure, as well as right heart failu re from long-standing chronic obstructive pulmonary disease and pulmonary hypertension. Will manage conditions as outlined below. 2. Atrial flutter. The patient appears to be in atrial flutter with 2:1 AV block at a rate of 130 b eats per minute. Reviewed risks and benefits of MARIAA cardioversion. Will arrange to have this perfor [facility]. 3. Diastolic heart failure. Echocardiogram demonstrates normal left ventricular size and systolic f unction. Suspect the patient has a component of diastolic heart failure related to atrial flutter wi th rapid ventricular response. Will manage with diuresis, as well as management of his atrial flutte r. 4. Hypoxemia. The patient's hypoxemia is likely related to underlying chronic obstructive pulmonary disease. His patent foramen ovale may be contributing, as he may have Eisenmenger's physiology with a [id number] shunt across this foramen ovale. Would consider right heart catheterization to dete rmine the hemodynamic significancy. Closure could be contemplated, depending on the results of the r ight heart catheterization. Reviewed with patient and his . /[id number]/MODL
[2018-07-08] MEDS ORDERED: FUROSEMIDE 40 MG/4 ML VIAL IVP ONE (11:27)
--- NOTE | 2018-07-08 11:29 | ASMTCMCOM ---
CM Note CM Note Notes: Pt is a 77 yo M with history of COPD, pulmonary hypertension, PFO, and Chronic high O2 dependence. Pt's at bedside. Cardioversion scheduled for later today, possible heart cath tomorrow. CM to follow for needs. Therapies will be ordered after procedures. Plan: TBD Date Signed: 07/08/2018 11:28 AM Electronically Signed By:JYOTI Galo
--- NOTE | 2018-07-08 12:12 | GCON ---
[f rep st] CONSULTATION WHITEWASHER CONSULTATION REASON FOR ADMISSION: Lower extremity swelling, hypoxemia. 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 He presen jacy with complaints of lower extremity swelling. In discussion with the patient, he states that over last several days he has noticed increasing lower extremity swelling. He was seen in his primary care doctor's office, found to be markedly hypoxemic and sent to the emergency room. He was then admitted to the intensive care unit and given diuretics . He states he feels somewhat better. His leg swelling has improved to some extent. He denies any chest pain, pleuritic-type chest pain, or angina equivalent. There is no cough or production of sput um. There is no fever or night sweats. He is followed by Dr. Miguel Dias in pulmonary office. He apparently is on high amounts of oxygen at home up to 9 L. ALLERGIES: No known allergies to medications. FAMILY HISTORY: Noncontributory. MEDICATIONS: At home, include Breo Ellipta, Spiriva, albuterol, lisinopril, hydrochlorothiazide, vit gonzalez B12, vitamin D, and aspirin. SOCIAL HISTORY: Previous heavy smoker, none for 5 years. No significant alcohol use. He is retired construction. He is . He has lived in [place] for many years, is originally from [place]. PAST MEDICAL HISTORY: As above. PHYSICAL EXAM: VITAL SIGNS: Blood pressure 116/87, pulse 129, respirations 21, temperature 36.4, ox ygen saturation % on 15 L. GENERAL: He is a mildly overweight elderly white male who is r esting comfortably on high amounts of oxygen. HEENT: Eyes: REYNA, EOMI. Throat shows no erythema o r tonsillar hypertrophy. NECK: Supple. No cervical adenopathy. HEART: Regular rate and rhythm wi th a 2/6 systolic murmur at the left sternal border without radiation. He is mildly tachycardic. SANJUANA NGS: Diminished breath sounds. There is a prolongation of expiratory phase and few bibasilar crackl es. ABDOMEN: Soft, nontender. Bowel sounds are present in all 4 quadrants. EXTREMITIES: Show 4+ lower extremity edema. LABORATORY/IMAGING: White count of 6, hemoglobin 15, hematocrit 52, platelet count is 214. INR is 1 .17. Sodium 141, potassium 4.4, chloride 102, CO2 29, BUN 24, creatinine 0.8, glucose is 139. pH 7. 38, pCO2 48, pO2 of 129, bicarb 29, oxygen saturation % on 15 L. Chest x-ray reveals a small left pleural effusion. There is possible fluid overload versus interstit ial lung disease. Echocardiogram reveals pulmonary pressure of 48 with mildly dilated right ventricle. There is hyperd ynamic left ventricular systolic function. IMPRESSION: 1. Chronic obstructive pulmonary disease with moderate airflow limitation, but a significant diffusi on capacity defect. 2. Patent foramen ovale, query how much this is contributing with likely shunt. 3. Secondary polycythemia, most likely a combination of chronic hypoxemia from his chronic obstructi ve pulmonary disease. Query how much patent foramen ovale is contributing. He may have some evidenc e of sleep apnea. 4. Valvular heart disease. 5. Atrial fibrillation. 6. Diastolic dysfunction. 7. Previous tobacco use. RECOMMENDATIONS: 1. Will obtain a high-resolution CT scan of the chest at soonest. 2. Will obtain duplex ultrasound of lower extremity. 3. Cardiology seen the patient. Feel he was likely require right heart catheterization to assess th e effects of his PFO. 4. Frequent nebulizer using both albuterol and Atrovent. 5. Supplemental oxygen. Will wean as tolerated. /[id number]/MODL
[2018-07-08] MEDS ORDERED: PROPOFOL 200 MG/20 ML VIAL ONE ×2 (15:02)
[2018-07-08] MEDS ORDERED: AMIODARONE HCL 200 ML IV ONE (15:32)
[2018-07-08] MEDS ORDERED: AMIODARONE HCL 100 ML IV ONE (15:32)
--- NOTE | 2018-07-08 15:37 | POSTANESTH ---
Post Anesthetic Evaluation Cardiovascular Status: Normal, Stable Respiratory Status: Similar to Pre-op Cond. Level of Consciousness/Mental Status: Moderately Sleepy Pain Control: Adequate, Prn Tx Ordered Nausea/Vomiting Control: Adequate, Prn Tx Ordered Complications Possibly Related to Anesthesia: None Noted
--- NOTE | 2018-07-08 15:37 | PDANEPAE ---
ANE Past Medical History - Pulmonary History Hx Oxygen in Use at Home: Yes O2 in Use at Home (L/minute): 9 Hx Sleep Apnea: No - Endocrine History Hx Diabetes: No - Chronic Pain History Chronic Pain: No ANE Review of Systems Review of Systems: ANE Patient History - Allergies Allergies/Adverse Reactions: No Known Allergies Allergy (Verified 07/07/18 13:35) - Home Medications Home Medications: Aspirin [Aspirin 81mg (*)] 81 mg PO DAILY 09/17/16 [Last Taken 07/07/18] Cholecalciferol Vit D3 [Vitamin D3 (*)] 5,000 units PO DAILY 09/17/16 [Last Taken 07/07/18] Cyanocobalamin [Vitamin B12 (*)] 1,000 mcg PO DAILY 09/17/16 [Last Taken ] Lisinopril/Hctz 20/12.5MG [Zestoretic/Prinzide 20/12.5MG (*)] 1 ea PO DAILY [Last Taken 07/07/18] Tiotropium Inhaler [Spiriva Inhaler] 1 inh IH DAILY 09/17/16 [Last Taken ] Albuterol [Proventil Neb] 3 ml IH DAILY 07/07/18 [Last Taken 07/07/18] Fluticasone/Vilanterol [Breo Ellipta 200-25 Mcg INH] 1 each IH DAILY 07/07/18 [ Last Taken 07/07/18] guaiFENesin [Mucinex 600 MG (*)] 600 mg PO BID 07/07/18 [Last Taken 07/07/18] - Smoking Hx Smoking Status: Former smoker - Alcohol Use Alcohol Use: None ANE Labs/Vital Signs - Labs Result Diagrams: 07/08/18 05:03 07/08/18 05:03 - Vital Signs Blood Pressure: 108/73 Heart Rate: 132 Respiratory Rate: 20 O2 Sat (%): 90 Height: 177.8 cm Weight: 101.15 kg ANE Physical Exam - Airway Neck exam: decreased ROM Mallampati Score: Class 2 Mouth exam: dentures - Pulmonary Pulmonary: reduced air movement, expiratory wheeze, respiratory distress - Cardiovascular Cardiovascular: irregularly irregular - ASA Status ASA Status: IV, E ANE Anesthesia Plan Anesthesia Plan: GA with mask
[2018-07-08] MEDS: ENOXAPARIN 100 MG/ML SYR SC SCH (20:40)
[2018-07-08] MEDS ORDERED: AMIODARONE HCL 540 MG in D5W 300 ML IV ONE (21:30)
[2018-07-09] MEDS: ENOXAPARIN 100 MG/ML SYR SC SCH ×2 (08:34→21:50)
[2018-07-09] MEDS: ALBUTEROL 3 ML DEYVIAL IH PRN (08:45)
[2018-07-09] MEDS: (Fluticasone/Vilanterol [Breo Ellipta 200-25 Mcg Inh] 1 EACH) IH SCH (08:46)
[2018-07-09] MEDS: TIOTROPIUM INHALER 18 MCG/DOSE 5 DOSE/MDI IH SCH (08:46)
--- NOTE | 2018-07-09 09:03 | PDINTPN ---
[place] Progress Note Assessment/Plan: Assessment/plan: * Moderate chronic obstructive pulmonary disease, with significant diffusion capacity defect -continue frequent nebulized treatments. * Pulmonary fibrosis-mild. Query this is the start of idiopathic pulmonary fibrosis. -follow * Right heart failure * Pulmonary hypertension-recent echo reveals PA pressure approximately 48 mm Hg , this is down from previous of 72 * Patent foramen ovale- -right heart catheterization today * History of polycythemia * Chronic hypoxemic respiratory failure with oxygen requirements up to 9 L. -wean FiO2 as tolerated * Atrial flutter-status post cardioversion yesterday * VT prophylaxis * Stress ulcer prophylaxis * PT/OT Subjective: Sitting up in chair, resting comfortably. Still on high amounts of supplemental oxygen Objective: Vital Signs Temp Pulse Resp BP Pulse Ox 35.7 C L 97 20 102/71 90 L 07/09/18 07:36 07/09/18 07:36 07/09/18 07:36 07/09/18 07:36 07/09/18 07:36 Laboratory Results 07/09/18 04:45 07/09/18 04:45 07/08/18 07/09/18 07/10/18 05:59 05:59 05:59 Intake Total 300 1224 Output Total 1650 1600 Balance -1350 -376 PT 14.4 SEC (12.0-15.0) 07/07/18 13:00 INR 1.17 (0.83-1.16) H 07/07/18 13:00 - Time Spent With Patient Time Spent With Patient: 35 min of time spent with patient, over 1/2 involved with coordination of care or counseling. Case discussed extensively with Cardiology and hospitalist Physical Exam - Physical Exam General Appearance: alert, no apparent distress EENT: PERRL/EOMI Neck: non-tender Respiratory: crackles (Few basilar), prolonged expiration, No respiratory distress, No wheezing Cardiac/Chest: normal peripheral pulses, regular rate, rhythm, systolic murmur Peripheral Pulses: 2+: carotid (R), carotid (L), femoral (R), femoral (L), dorsalis-pedis (R), dorsalis-pedis (L) Abdomen: normal bowel sounds, non-tender, soft Male Genitalia: deferred Rectal: deferred Skin: warm/dry Extremities: swelling Neuro/Psych: no motor/sensory deficits, alert, normal mood/affect, oriented x 3 ICD10 Worksheet Patient Problems: Problems Problem Status Onset CHF (congestive heart failure) Acute COPD (chronic obstructive pulmonary disease) Acute Respiratory failure Acute
[2018-07-09] MEDS ORDERED: LIDOCAINE 1% 300 MG/30 ML SDV ONE (09:54)
[2018-07-09] MEDS ORDERED: IOPAMIDOL (ISOVUE-370) 150 ML BTL IV ONE (09:55)
[2018-07-09] MEDS ORDERED: MIDAZOLAM 2 MG/2 ML VIAL ONE (09:55)
--- NOTE | 2018-07-09 09:58 | HOSPPROG ---
Hospitalist Progress Note Assessment/Plan: 77yo M with history of COPD, pulmonary hypertension, PFO, chronic high O2 dependence who presents from his PCP clinic to the ED with leg swelling and hypoxemia. #Acute on chronic hypoxemic respiratory failure: Moderate COPD. 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 Question whether PFO is also contributing (R->L shunt) - Right heart cath today to determine hemodynamic significance of PFO - Pulm following #Atrial flutter w/2:1 conduction - S/p successful DCCV 07/08 - Continue lovenox 100mg BID #Acute diastolic CHF and leg edema: Precipitated by elevated HR - Holding on lasix until see what RHC shows #Pulmonary hypertension: RVSP 48, previously 72 on prior echo but may be falsely low in setting of tachycardia #PFO: As above, unclear if this is significant/causing his worsening hypoxia with Eisenmegner physiology. Additionally, this may be a "relief valve" for his RV in setting of his pulmonary hypertension and closing it could potentially cause his RV to fail. RHC will hopefully help sort this out. #Polycythemia: Suspect secondary d/t hypoxia; was previously seeing a timber rider (Dr Falcon) for phlebotomy. #COPD: Does not have obstructive physiology. Continue home inhalers. #Valvular heart disease: Mild TR noted on echo. #H/o atrial fibrillation: One episode in 2013 s/p successful DCCV. No recorded recurrence since. Not previously on OAC. #HTN: Continue home lisinopril/hctz. VTE ppx: LMWH Code: limited, no intubation per discussion, ok w/CPR Dispo: Remain in step down unit Subjective: Successful cardioversion yesterday afternoon. Feeling well this morning. Leg swelling better. Breathing ok but still on high amount of O2. Objective: Vital Signs Temp Pulse Resp BP Pulse Ox 35.7 C L 96 21 H 102/71 91 L 07/09/18 07:36 07/09/18 08:47 07/09/18 08:47 07/09/18 07:36 07/09/18 08:47 Laboratory Results 07/09/18 04:45 07/09/18 04:45 07/08/18 07/09/18 07/10/18 05:59 05:59 05:59 Intake Total 300 1224 Output Total 1650 1600 Balance -1350 -376 PT 14.4 SEC (12.0-15.0) 07/07/18 13:00 INR 1.17 (0.83-1.16) H 07/07/18 13:00 - Physical Exam Constitutional: no apparent distress, obese Eyes: PERRL, anicteric sclera, EOMI Ears, Nose, Mouth, Throat: moist mucous membranes, hearing normal, ears appear normal, no oral mucosal ulcers Cardiovascular: tachycardia, edema (1+ BLE) Respiratory: no respiratory distress, reduced air movement, No expiratory wheeze , No inspiratory crackles Gastrointestinal: soft, non-tender abdomen, distension Genitourinary: no bladder fullness, no bladder tenderness, no renal bruits Skin: no rashes or abrasions, no fluctuance, no induration Musculoskeletal: full muscle strength, no muscle tenderness, normal joint ROM Neurologic: AAOx3 Psychiatric: poor insight ICD10 Worksheet Patient Problems: Problems Problem Status Onset CHF (congestive heart failure) Acute COPD (chronic obstructive pulmonary disease) Acute Respiratory failure Acute
--- NOTE | 2018-07-09 10:37 | PDPROPOC ---
Sedation Plan of Care Sedation Plan of Care: vital signs stable, mental status noted, patient educated of risks, benefits, alternatives, patient can tolerate sedation ASA Classification: ASA 3 Planned drugs: fentanyl, midazolam Mallampati Score: Class 2 Mallampati Reference Image: Patient passed 3-3-2 rule?: Yes
[2018-07-09] MEDS: guaiFENesin 600 MG TAB.ER PO SCH ×2 (10:58→21:50)
[2018-07-09] MEDS: ASPIRIN 81 MG CHEWABLE TAB PO SCH ×2 (10:58→13:01)
[2018-07-09] MEDS: LISINOPRIL/HCTZ 20/12.5MG 1 EA TAB PO SCH ×2 (10:58→13:04)
--- NOTE | 2018-07-09 12:20 | CPIP ---
[f rep st] INVASIVE CARDIAC PROCEDURE DATE OF PROCEDURE: 07/09/2018 PROCEDURE: Right heart catheterization. INDICATION: 1. Hypoxemia. 2. Pulmonary hypertension. 3. History of patent foramen ovale with [id number] shunt. ACCESS: Patient was prepped and draped in sterile fashion. 1% lidocaine was used to anesthetize the right inguinal region. A 5-Kyrgyz introducer sheath was placed selectively into the right femoral artery via modified Seldinger technique. 1% lidocaine was used to anesthetize the left inguinal region. A 7- Kyrgyz introducer sheath was placed selectively in the left common femoral vein via modified Seldinger technique. RIGHT HEART CATHETERIZATION: The right heart catheter was advanced into the right atrium and pressure and sat obtained. The right atrial pressure was 25 mmHg. The saturation was 76.1%. Catheter was then advanced in the right ventricle and pressure and saturation obtained. The right ventricular pressure was 78/9 with a saturation of 75.6%. The catheter was then advanced in the pulmonary artery and pressure and sat obtained. The pulmonary artery pressure was 69/41 and the saturation was 75.9%. The catheter was then advanced into the wedge position and pressure obtained. The pulmonary capillary wedge pressure was 32 mmHg. The catheter was then withdrawn into the IVC and saturation obtained. IVC saturation 76.9%. The catheter was then advanced into the SVC and saturation obtained, with the saturation 72.8%. The catheter was then advanced into the left atrium over a guidewire. The left atrial saturation was 95.1%. The femoral artery saturation was 94.1%. The Qp/Qs was equal to 1.05. COMPLICATIONS: None. CONCLUSIONS: 1. Pulmonary hypertension with a mean pulmonary artery pressure of 53 mmHg. 2. The transpulmonary gradient is 21 mmHg indicating a primary pulmonary component to his pulmonary hypertension. 3. The pulmonary capillary wedge pressure is 32 mmHg indicating a component of left heart failure to his pulmonary hypertension. 4. Qp/Qs of 1.05 indicating no significant right to left shunt. 5. The left superior pulmonary vein saturation was 95.1%. The femoral artery saturation was 94.1% indicating no significant right to left shunt. /[id number]/MODL MTDD
[2018-07-09] MEDS ORDERED: POLYETHYLENE GLYCOL 3350 17 GM PKT PO PRN (13:18)
[2018-07-09] MEDS ORDERED: LACTULOSE 20 GM/30 ML UDCUP PO PRN (13:18)
[2018-07-09] MEDS ORDERED: BISACODYL 10 MG SUPP PR PRN (13:18)
[2018-07-09] MEDS ORDERED: MAGNESIUM HYDROXIDE 30 ML UDCUP PO PRN (13:18)
[2018-07-09] MEDS ORDERED: AMIODARONE HCL 200 MG TAB PO ONE (15:15)
--- NOTE | 2018-07-09 16:52 | ECHO ---
[email or web address] [place] [id number] Main: [phone] Echocardiography Examination Transesophageal Name: JAYESH LOMAS MR#: [id number] Study Date: 07/08/2018 Study Time: 03:05 PM Date of : 1940 Age: 77 year(s) Height: 172.7 cm (68 in.) Weight: 96.16 kg (212 lb.) BSA: 2.09 m2 Gender: Male Examination: MARIAA Contrast: Image Quality: Rhythm: Atrial flutter Heart Rate: 132 bpm BP: 99 mmHg/79 mmHg Indication: Pre Cardioversion Procedure Staff Referring Physician: Change Management Administrator: Jet Leigh RDCS Reading Physician: Domingo Baker MD Requesting Provider: Ordering Physician: Oneal Matthews Indication: Pre Cardioversion Measurements Chambers TV/PV Label Value Normal Value Label Value Normal Value RA Pressure 5 mmHg RVSP 32 mmHg TR Pmax 27 mmHg TR Vmax 2.62 m/s Conclusions This is a transesophageal echocardiogram performed prior to cardioversion. Please see findings as outlined below. Findings Left Ventricle: The EF is visually estimated to be 60 %. Right Ventricle: Right ventricular systolic function is moderately to markedly reduced. Left Atrium Appendage: There is no spontaneous echo contrast ("smoke") in the left atrial appendage. Good color flow doppler in the left atrial appendage. IAS: Patient: JAYESH LOMAS Study Date: 07/08/2018 Page 1 of 2 03:05 PM An agitated saline study was performed and was positive for intracardiac shunting. Tricuspid Valve: Right Ventricular systolic pressure is measured at 32 mmHg. Exam Details Procedure Ordered: MARIAA (No Signature Object) Patient: JAYESH LOMAS Study Date: 07/08/2018 Page 2 of 2 03:05 PM [id number]
--- NOTE | 2018-07-09 17:13 | SOAPPROG ---
SOAP Progress Note Assessment/Plan: 1. A-flutter - Patient presented with atrial flutter with 2-1 AV block. He was treated with DC cardioversion on 07/08 with return to normal sinus rhythm. --> transition from lovenox to eliquis in the am. 2. Diastolic CHF - Patient presented with right greater than left heart failure. Echocardiogram demonstrated normal left ventricular size and systolic function with no significant valvular abnormalities. Suspected component of diastolic heart failure related to atrial flutter with rapid ventricular response. Right heart catheterization on 07/09 demonstrated elevated pulmonary capillary wedge pressure confirming this. --> managed with diuresis. 3. Hypoxemia - Patient presented with hypoxemia and elevated O2 requirements. He had a history of a large PFO with right to left shunt. Right heart catheterization on 07/09 demonstrated no significant right to left shunt. Suspect secondary to underlying lung disease. Subjective: No chest pain No orthopnea or PND + lower extremity edema RHC performed Objective: Vital Signs Temp Pulse Resp BP Pulse Ox 36.8 C 95 18 106/73 92 07/09/18 15:58 07/09/18 15:58 07/09/18 15:58 07/09/18 15:58 07/09/18 15:58 Laboratory Results 07/09/18 04:45 07/09/18 04:45 07/08/18 07/09/18 07/10/18 05:59 05:59 05:59 Intake Total 300 1224 220 Output Total 1650 1600 140 Balance -1350 -376 80 PT 14.4 SEC (12.0-15.0) 07/07/18 13:00 INR 1.17 (0.83-1.16) H 07/07/18 13:00 Physical Exam - Physical Exam General Appearance: alert, mild distress Respiratory: crackles Cardiac/Chest: regular rate, rhythm Abdomen: non-tender, soft, distended Extremities: pedal edema Neuro/Psych: alert, oriented x 3 ICD10 Worksheet Patient Problems: Problems Problem Status Onset CHF (congestive heart failure) Acute COPD (chronic obstructive pulmonary disease) Acute Respiratory failure Acute
[2018-07-09] MEDS: SENNOSIDES/DOCUSATE SODIUM TAB PO SCH (21:50)
[2018-07-10] MEDS ORDERED: AMIODARONE HCL 200 MG TAB PO SCH (09:00)
--- NOTE | 2018-07-10 09:05 | PDINTPN ---
System Controller Progress Note Assessment/Plan: Assessment/plan: * Chronic obstructive pulmonary disease-pulmonary function testing revealed moderate obstruction but significant diffusion capacity defect -continue frequent nebulized treatments. 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 -follow up with Dr. Miguel Dias in the office * Right heart failure-did not show significant shunting with PFO * Pulmonary hypertension-recent echo reveals PA pressure approximately 48 mm Hg , this is down from previous of 72 * Patent foramen ovale-not significant * History of polycythemia * Chronic hypoxemic respiratory failure with oxygen requirements up to 9 L - given a right heart catheterization that did not show significant shunting with PFO, this is likely secondary to combination of chronic obstructive pulmonary disease and new onset idiopathic pulmonary fibrosis. While there is medication to slow the progression of idiopathic pulmonary fibrosis, there is nothing available that will improve his lung function. * Atrial flutter-status post cardioversion yesterday * VT prophylaxis * Stress ulcer prophylaxis * PT/OT * Disposition-will transfer patient to PCU. Likely home in morning. Subjective: Sitting up in chair. Resting comfortably. Still requiring high amounts of supplemental oxygen. Objective: Vital Signs Temp Pulse Resp BP Pulse Ox 36.9 C 96 20 101/67 90 L 07/10/18 07:25 07/10/18 07:25 07/10/18 07:25 07/10/18 07:25 07/10/18 07:25 Laboratory Results 07/10/18 05:10 07/10/18 05:10 07/09/18 07/10/18 07/11/18 05:59 05:59 05:59 Intake Total 1224 1251 Output Total 1600 750 Balance -376 501 PT 14.4 SEC (12.0-15.0) 07/07/18 13:00 INR 1.17 (0.83-1.16) H 07/07/18 13:00 - Time Spent With Patient Time Spent With Patient: 35 min of time spent with patient, over 1/2 involved with coordination of care or counseling. Case discussed with hospitalist and engraver picture. Physical Exam - Physical Exam General Appearance: alert, no apparent distress EENT: PERRL/EOMI Neck: non-tender, supple Respiratory: crackles (Bibasilar), prolonged expiration, No respiratory distress , No wheezing Cardiac/Chest: normal peripheral pulses, regular rate, rhythm, systolic murmur Peripheral Pulses: 2+: carotid (R), carotid (L), femoral (R), femoral (L), dorsalis-pedis (R), dorsalis-pedis (L) Abdomen: normal bowel sounds, non-tender, soft Male Genitalia: deferred Rectal: deferred Skin: warm/dry Extremities: swelling Neuro/Psych: no motor/sensory deficits, alert, normal mood/affect, oriented x 3 ICD10 Worksheet Patient Problems: Problems Problem Status Onset CHF (congestive heart failure) Acute COPD (chronic obstructive pulmonary disease) Acute Respiratory failure Acute
[2018-07-10] MEDS: ALBUTEROL 3 ML DEYVIAL IH PRN (09:56)
[2018-07-10] MEDS: guaiFENesin 600 MG TAB.ER PO SCH ×2 (10:23→21:15)
[2018-07-10] MEDS: SENNOSIDES/DOCUSATE SODIUM TAB PO SCH ×2 (10:24→21:15)
[2018-07-10] MEDS: APIXABAN 5 MG TAB PO SCH ×2 (10:25→21:15)
[2018-07-10] MEDS: LISINOPRIL/HCTZ 20/12.5MG 1 EA TAB PO SCH (10:25)
[2018-07-10] MEDS: ASPIRIN 81 MG CHEWABLE TAB PO SCH (10:25)
[2018-07-10] MEDS: FUROSEMIDE 20 MG/2 ML VIAL IVP SCH (10:28)
[2018-07-10] MEDS: (Fluticasone/Vilanterol [Breo Ellipta 200-25 Mcg Inh] 1 EACH) IH SCH (10:33)
[2018-07-10] MEDS: TIOTROPIUM INHALER 18 MCG/DOSE 5 DOSE/MDI IH SCH (10:33)
--- NOTE | 2018-07-10 12:52 | HOSPPROG ---
Hospitalist Progress Note Assessment/Plan: 77yo M with history of COPD, pulmonary hypertension, PFO, chronic high O2 dependence who presents from his PCP clinic to the ED with leg swelling and hypoxemia. #Acute on chronic hypoxemic respiratory failure: Moderate COPD. 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 PFO not contributing. - Pulm following, continue inhalers, wean O2 as able #Atrial flutter w/2:1 conduction: S/p successful DCCV 07/08, remains in sinus - Switched from Lovenox to eliquis today. Continue amiodarone. #Acute diastolic CHF and leg edema: Wedge pressure 32 on cath yesterday - Lasix 20mg IV daily #Pulmonary hypertension: RVSP 48, previously 72 on prior echo but may be falsely low in setting of tachycardia #Polycythemia: Suspect secondary d/t hypoxia; was previously seeing a liner checker (Dr Falcon) for phlebotomy. #COPD: Does not have obstructive physiology. Continue home inhalers. #Valvular heart disease: Mild TR noted on echo. #H/o atrial fibrillation: One episode in 2013 s/p successful DCCV. No recorded recurrence since. Not previously on OAC. #HTN: Continue home lisinopril/hctz. VTE ppx: LMWH Code: limited, no intubation per discussion, ok w/CPR Dispo: Ok for transfer to floor Subjective: RHC yesterday. Shunt not significant. Wedge pressure up. Swelling continues to improve. Breathing a bit better. Wanting to leave. Objective: Vital Signs Temp Pulse Resp BP Pulse Ox 36.9 C 105 H 18 107/71 87 L 07/10/18 11:52 07/10/18 11:52 07/10/18 11:52 07/10/18 11:52 07/10/18 11:52 Laboratory Results 07/10/18 05:10 07/10/18 05:10 07/09/18 07/10/18 07/11/18 05:59 05:59 05:59 Intake Total 1224 1251 Output Total 1600 750 Balance -376 501 PT 14.4 SEC (12.0-15.0) 07/07/18 13:00 INR 1.17 (0.83-1.16) H 07/07/18 13:00 - Physical Exam Constitutional: no apparent distress, obese Eyes: PERRL, anicteric sclera, EOMI Ears, Nose, Mouth, Throat: moist mucous membranes, hearing normal, ears appear normal, no oral mucosal ulcers Cardiovascular: no murmur, rub, or gallop, tachycardia, edema (1+) Respiratory: no respiratory distress, reduced air movement, No expiratory wheeze , No inspiratory crackles Gastrointestinal: normoactive bowel sounds, soft, non-tender abdomen, no palpable masses Genitourinary: no bladder fullness, no bladder tenderness, no renal bruits Skin: no rashes or abrasions, no fluctuance, no induration Musculoskeletal: full muscle strength, no muscle tenderness, normal joint ROM Neurologic: AAOx3 Psychiatric: interacting appropriately ICD10 Worksheet Patient Problems: Problems Problem Status Onset CHF (congestive heart failure) Acute COPD (chronic obstructive pulmonary disease) Acute Respiratory failure Acute
--- NOTE | 2018-07-10 15:41 | ASMTCMCOM ---
CM Note CM Note Notes: PT/OT being ordered for the patient today and likely transfer to PCU. CM will follow. Date Signed: 07/10/2018 03:41 PM Electronically Signed By:Jaelyn Hardy LCSW
--- NOTE | 2018-07-10 18:31 | SOAPPROG ---
UDAY Progress Note Assessment/Plan: 1. A-flutter - Patient presented with atrial flutter with 2-1 AV block. He was treated with DC cardioversion on 07/08 with return to normal sinus rhythm. Currently maintaining NSR with amiodarone. --> transition from lovenox to eliquis today --> Continue amiodarone 200 mg daily 2. Diastolic CHF - Patient presented with right greater than left heart failure. Echocardiogram demonstrated normal left ventricular size and systolic function with no significant valvular abnormalities. Suspected component of diastolic heart failure related to atrial flutter with rapid ventricular response. Right heart catheterization on 07/09 demonstrated elevated pulmonary capillary wedge pressure confirming this. --> Continue diuresis. Goal net negative 1.5 L today. 3. Hypoxemia - Patient presented with hypoxemia and elevated O2 requirements. He had a history of a large PFO with right to left shunt. Right heart catheterization on 07/09 demonstrated no significant right to left shunt. Suspect secondary to underlying lung disease. Subjective: No chest pain No orthopnea or PND anxious to go home dyspnea improved remains on high O2 requirements Objective: Vital Signs Temp Pulse Resp BP Pulse Ox 36.7 C 100 18 99/65 L 85 L 07/10/18 16:13 07/10/18 16:13 07/10/18 11:52 07/10/18 16:13 07/10/18 16:13 Laboratory Results 07/10/18 05:10 07/10/18 05:10 07/09/18 07/10/18 07/11/18 05:59 05:59 05:59 Intake Total 1224 1251 Output Total 3419 729 8083 Balance -376 501 -1000 PT 14.4 SEC (12.0-15.0) 07/07/18 13:00 INR 1.17 (0.83-1.16) H 07/07/18 13:00 Physical Exam - Physical Exam General Appearance: alert, mild distress Respiratory: rhonchi, other Cardiac/Chest: regular rate, rhythm, systolic murmur Abdomen: non-tender, distended Extremities: pedal edema Neuro/Psych: alert ICD10 Worksheet Patient Problems: Problems Problem Status Onset CHF (congestive heart failure) Acute COPD (chronic obstructive pulmonary disease) Acute Respiratory failure Acute
--- NOTE | 2018-07-11 07:47 | CPEKG ---
Test Reason : OPEN Blood Pressure : / mmHG Vent. Rate : 131 BPM Atrial Rate : 132 BPM P-R Int : 038 ms QRS Dur : 119 ms QT Int : 356 ms P-R-T Axes : 000 126 010 degrees QTc Int : 526 ms Sinus tachycardia Nonspecific intraventricular conduction delay Low voltage, extremity leads Minimal ST depression Confirmed by Gaudencio Madrid ([id number]) on 07/11/2018 7:46:04 AM Referred By: Gaudencio Madrid Confirmed By:Gaudencio Madrid
--- NOTE | 2018-07-11 07:47 | CPEKG ---
Test Reason : OPEN Blood Pressure : / mmHG Vent. Rate : 133 BPM Atrial Rate : 133 BPM P-R Int : 109 ms QRS Dur : 101 ms QT Int : 310 ms P-R-T Axes : -36 148 -21 degrees QTc Int : 462 ms Sinus tachycardia Right ventricular hypertrophy Confirmed by Gaudencio Madrid ([id number]) on 07/11/2018 7:46:03 AM Referred By: Gaudencio Madrid Confirmed By:Gaudencio Madrid
[2018-07-11] MEDS: APIXABAN 5 MG TAB PO SCH (08:26)
[2018-07-11] MEDS: FUROSEMIDE 20 MG/2 ML VIAL IVP SCH (08:26)
[2018-07-11] MEDS: SENNOSIDES/DOCUSATE SODIUM TAB PO SCH (08:26)
[2018-07-11] MEDS: guaiFENesin 600 MG TAB.ER PO SCH (08:26)
[2018-07-11] MEDS: ASPIRIN 81 MG CHEWABLE TAB PO SCH (08:26)
[2018-07-11] MEDS: LISINOPRIL/HCTZ 20/12.5MG 1 EA TAB PO SCH (08:26)
[2018-07-11] MEDS: (Fluticasone/Vilanterol [Breo Ellipta 200-25 Mcg Inh] 1 EACH) IH SCH (08:44)
[2018-07-11] MEDS: TIOTROPIUM INHALER 18 MCG/DOSE 5 DOSE/MDI IH SCH (08:45)
--- NOTE | 2018-07-11 09:14 | PDINTPN ---
Chief Mechanical Engineer Progress Note Assessment/Plan: Assessment/plan: * Chronic obstructive pulmonary disease-pulmonary function testing revealed moderate obstruction but significant diffusion capacity defect -continue frequent nebulized treatments. 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 -follow up with Dr. Migule Dias in the office * Right heart failure-did not show significant shunting with PFO * Pulmonary hypertension-recent echo reveals PA pressure approximately 48 mm Hg , this is down from previous of 72 * Patent foramen ovale-not significant * History of polycythemia * Chronic hypoxemic respiratory failure with oxygen requirements up to 9 L - given a right heart catheterization that did not show significant shunting with PFO, this is likely secondary to combination of chronic obstructive pulmonary disease and new onset idiopathic pulmonary fibrosis. While there is medication to slow the progression of idiopathic pulmonary fibrosis, there is nothing available that will improve his lung function. * Atrial flutter-status post cardioversion yesterday * VT prophylaxis * Stress ulcer prophylaxis * PT/OT * Disposition-likely home today * Prognosis-questionable Subjective: Sitting up in chair. Resting comfortably. Still requiring high amounts of supplemental oxygen. Objective: Vital Signs Temp Pulse Resp BP Pulse Ox 36.6 C 100 20 120/64 91 L 07/11/18 07:07 07/11/18 08:46 07/11/18 08:46 07/11/18 07:07 07/11/18 08:46 Laboratory Results 07/10/18 05:10 07/11/18 04:10 07/10/18 07/11/18 07/12/18 05:59 05:59 05:59 Intake Total 1251 500 Output Total 750 1800 Balance 501 -1300 PT 14.4 SEC (12.0-15.0) 07/07/18 13:00 INR 1.17 (0.83-1.16) H 07/07/18 13:00 - Time Spent With Patient Time Spent With Patient: 35 min of time spent with patient over 1/2 involved with coordination of care counseling Case discussed with nursing Physical Exam - Physical Exam General Appearance: alert, no apparent distress EENT: PERRL/EOMI Neck: non-tender, supple Respiratory: decreased breath sounds, crackles (Bibasilar), prolonged expiration , No accessory muscle use Cardiac/Chest: normal peripheral pulses, regular rate, rhythm, systolic murmur Peripheral Pulses: 2+: carotid (R), carotid (L), femoral (R), femoral (L), dorsalis-pedis (R), dorsalis-pedis (L) Abdomen: normal bowel sounds, non-tender, soft Male Genitalia: deferred Rectal: deferred Skin: normal color, warm/dry Extremities: non-tender Neuro/Psych: alert, normal mood/affect ICD10 Worksheet Patient Problems: Problems Problem Status Onset CHF (congestive heart failure) Acute COPD (chronic obstructive pulmonary disease) Acute Respiratory failure Acute
--- NOTE | 2018-07-11 12:28 | SOAPPROG ---
SOAP Progress Note Assessment/Plan: 1. A-flutter - Patient presented with atrial flutter with 2-1 AV block. He was treated with DC cardioversion on 07/08 with return to normal sinus rhythm. Currently maintaining NSR. --> Continue eliquis 5m g bid. --> DC amiodarone --> F/U Dr. Swartz in 1 month. 2. Diastolic CHF - Patient presented with right greater than left heart failure. Echocardiogram demonstrated normal left ventricular size and systolic function with no significant valvular abnormalities. Suspected component of diastolic heart failure related to atrial flutter with rapid ventricular response. Right heart catheterization on 07/09 demonstrated elevated pulmonary capillary wedge pressure confirming this. --> Continue diuresis. 3. Hypoxemia - Patient presented with hypoxemia and elevated O2 requirements. He has a history of a large PFO with right to left shunt. Right heart catheterization on 07/09 demonstrated no significant right to left shunt. Suspect secondary to underlying lung disease. Subjective: Anxious to go home. Objective: Vital Signs Temp Pulse Resp BP Pulse Ox 36.7 C 97 18 101/68 89 L 07/11/18 11:37 07/11/18 11:37 07/11/18 11:37 07/11/18 11:37 07/11/18 11:37 Laboratory Results 07/10/18 05:10 07/11/18 04:10 07/10/18 07/11/18 07/12/18 05:59 05:59 05:59 Intake Total 1251 500 Output Total 750 1800 800 Balance 501 -1300 -800 PT 14.4 SEC (12.0-15.0) 07/07/18 13:00 INR 1.17 (0.83-1.16) H 07/07/18 13:00 Physical Exam - Physical Exam General Appearance: alert, no apparent distress Respiratory: decreased breath sounds, crackles Cardiac/Chest: regular rate, rhythm Extremities: pedal edema ICD10 Worksheet Patient Problems: Problems Problem Status Onset CHF (congestive heart failure) Acute COPD (chronic obstructive pulmonary disease) Acute Respiratory failure Acute
--- NOTE | 2018-07-11 13:22 | PDHOMEO2F ---
Home Oxygen Face to Face Home Orders: I certify that a physician or a nurse practitioner or physician's primary teaching assistant has had a [id number] encounter with this patient on the date of this order due to the diagnosis listed, which relates to the primary reason the patient requires home oxygen. Alternative treatments have been tried, or considered, and deemed ineffective. It is anticipated that supplemental oxygen will result in improvement with treatment. Home oxygen qualifying diagnosis: respiratory failure with hypoxia, COPD SpO2 on room air (%): 50 Frequency of home oxygen needed: continuous Home oxygen liters per minute: 20 Home oxygen delivery device: other (high flow nasal cannula) Concentrator: Yes E-tanks for mobility and back up: Yes If ordering portable O2, is the patient mobile in the home?: Yes I certify that, based on these findings, the home oxygen is medically necessary for this patient for the following length of time. Length of time home oxygen needed: 99 years Home Oxygen Comment: Prescribing liquid oxygen.
--- NOTE | 2018-07-11 13:24 | PDDCSUM ---
Discharge Summary Discharge Summary: Date of Admission: 07/07/2018 Date of Discharge: 07/11/2018 Consultants: pulmonology, cardiology Procedures: MARIAA-guided DCCV, right heart catheterization Studies: high resolution CT chest, TTE, lower extremity venous ultrasound Discharge Diagnoses: 1. Acute on chronic hypoxemic respiratory failure with very high oxygen needs 2. Atrial flutter with 2:1 conduction 3. Moderate COPD without exacerbation 4. Pulmonary fibrosis (new) 5. Acute diastolic CHF 6. Pulmonary hypertension 7. Polycythemia 8. Patent foramen ovale 9. Hypertension Brief Hospital Course: 77yo M with history of moderate COPD, pulmonary hypertension, PFO, chronic high O2 dependence (8-9L) presented from his PCP clinic to the ED with leg swelling and hypoxemia. Leg swelling started 8 days prior to admission. Per his , his oxygen levels at home range from 82-86% while at rest and in the mid-70s with exertion while on 9L. He was found to be in atrial flutter with rapid rates. Cardiology was consulted. He was started on anticoagulation. Underwent successful MARIAA-guided electrical cardioversion. He was diuresed with lasix. He was discharged on eliquis and PO lasix. Will follow up with Dr Swartz and if back in aflutter can consider amiodarone. His oxygen requirements were precarious and were out of proportion to the degree of COPD that he has. He was not exacerbated from his COPD. Pulmonology was consulted. He underwent hi-resolution CT chest that showed mild pulmonary fibrosis that was new. He will follow up with his proposal engineer regarding this. He is on appropriate therapies for his COPD. Because of his significant hypoxemia, he did undergo right heart catheterization to evaluate the hemodynamic significance of his PFO to see if this was leading to a R->L shunt. The PFO was not hemodynamically significant (Qp/Qs 1.05). The RHC did show pulmonary hypertension (mean PAP 53, PCWP 32) and he was diuresed as above. He was set up through [employer] with high flow liquid oxygen that can accomodate up to 20L/min. He was requiring between 10 and 20L/min at time of discharge. Medications: Please refer to EMR for complete list. I wrote prescriptions for eliquis 5mg BID and lasix 20mg PO QD. I stopped his aspirin 81mg daily. Follow Up Plan: 1. Dr Titus Swartz in cardiology clinic in [address] Mark Dias in pulmonology clinic in 2-3 weeks. 3. Outpatient palliative care order placed while in the hospital and referral sent. Physical Exam: Vitals and telemetry reviewed, afebrile. Alert and oriented, no focal neuro deficits. Mildly tachycardic. Lungs diminished but without wheezes or rales. Abdomen soft and nt. Improved leg edema.
--- NOTE | 2018-07-11 14:24 | ASMTLACE ---
LACE Length of stay for Answers: 4-6 days current admission Acuity / Level of Answers: Yes Care: Did the patient have an inpatient admission? Comorbidities - select Answers: Chronic pulmonary disease all that apply Congestive heart failure Other Notes: HTN; Valvular heart disease # of Emergency department Answers: 1-2 visits in the last 6 months Score: 13 Date Signed: 07/11/2018 02:23 PM Electronically Signed By:Jaelyn Hardy LCSW
--- NOTE | 2018-07-11 15:15 | ASMTDCNOTE ---
Case Management Discharge Discharge Order Complete? Answers: Yes Patient to Obtain Answers: Independently Medications Transportation Arranged Answers: Family/Friends Transport will Pick (Date 07/11/2018 12:00 AM & Time) Family Notified Answers: Yes Notes: , Danae Discharge Comments Notes: Patient is discharging home today. He is in need of O2 equipment to make the trip home and equipment at home to meet his high O2 needs. Meri has coordinated with the patient's daughter, Hamida Krueger who is meeting them at the house. Palliative care (outpatient) order was placed and a referral was made to [facility]. Patient's , Danae will drive him home. No further needs. Date Signed: 07/11/2018 03:15 PM Electronically Signed By:Jaelyn Hardy LCSW
--- NOTE | 2018-07-11 15:18 | ASDISCHSUM ---
Discharge Information Plan Status:Home with DME or Oxygen Medically Cleared to Leave:07/11/2018 Discharge Date:07/11/2018 CM D/C Disposition:Home, Routine, Self-Care ADT D/C Disposition:Home, Routine, Self-Care Projected Discharge Date:07/11/2018 11:00 AM Transportation at D/C:Family Discharge Delay Reason: Follow-Up Date:07/11/2018 11:00 AM Discharge Slot:2 - 12:01 pm - 18:00 pm Final Diagnosis:COPD,CHF, respiratory failure Placement Information Referral Type:Palliative Care Referral ID:[id number] Provider Name:[facility] Address 1:[address] Phone Number: Address 2: Fax Number: City:[place] Selection Factors: State:[place] Patient Contact Information Contact Name:JOSE ANTONIO Relationship: Address:[address] Work Phone: City:[place] Alternate Phone: [facility]/Zip Code:[place] [address] Email: Financial Information Financial Class:Medicare Advantage Plans Primary Plan Desc:[employer] PPO MEDICARE Primary Plan Number:[id number] Secondary Plan Desc: Secondary Plan Number: Assessment Information [facility] CM Progress Note CM Note CM Note Notes: Pt is a 77 yo M with history of COPD, pulmonary hypertension, PFO, and Chronic high O2 dependence. Pt's at bedside. Cardioversion scheduled for later today, possible heart cath tomorrow. CM to follow for needs. Therapies will be ordered after procedures. Plan: TBD Date Signed: 07/08/2018 11:28 AM Electronically Signed By:JYOTI Galo LACE LACE Length of stay for Answers: 4-6 days current admission Acuity / Level of Answers: Yes Care: Did the patient have an inpatient admission? Comorbidities - select Answers: Chronic pulmonary disease all that apply Congestive heart failure Other Notes: HTN; Valvular heart disease # of Emergency department Answers: 1-2 visits in the last 6 months Score: 13 Date Signed: 07/11/2018 02:23 PM Electronically Signed By:Jaelyn Hardy LCSW [facility] CM Progress Note CM Note CM Note Notes: PT/OT being ordered for the patient today and likely transfer to PCU. CM will follow. Date Signed: 07/10/2018 03:41 PM Electronically Signed By:Jaelyn Hardy LCSW Case Management Discharge Plan Note Case Management Discharge Discharge Order Complete? Answers: Yes Patient to Obtain Answers: Independently Medications Transportation Arranged Answers: Family/Friends Transport will Pick (Date 07/11/2018 12:00 AM & Time) Family Notified Answers: Yes Notes: , Danae Discharge Comments Notes: Patient is discharging home today. He is in need of O2 equipment to make the trip home and equipment at home to meet his high O2 needs. Meri has coordinated with the patient's daughter, Hamida Krueger who is meeting them at the house. Palliative care (outpatient) order was placed and a referral was made to [facility]. Patient's , Danae will drive him home. No further needs. Date Signed: 07/11/2018 03:15 PM Electronically Signed By:Jaelyn Antony, AUTOMOTIVE BRAKE TECHNICIAN Intervention Information
[2018-07-11 16:51] VITALS: BP 116/82
== END 2018-07-11 18:06 | disposition home or self-care (01) | DRG 286 ==
LOC: F2N 15:48
PROVIDERS: ADMIT Internal Medicine; ATTEND Internal Medicine
PROC: B246ZZ4 Ultrasonography of Right and Left Heart, Transesophageal (ICD-10-PCS; 2018-07-07)
PROC: 5A2204Z Restoration of Cardiac Rhythm, Single (ICD-10-PCS; 2018-07-07)
PROC: 4A023N6 Measurement of Cardiac Sampling and Pressure, Right Heart, Percutaneous Approach (ICD-10-PCS; principal; 2018-07-09)
PROC: B2111ZZ Fluoroscopy of Multiple Coronary Arteries using Low Osmolar Contrast (ICD-10-PCS; principal; 2018-07-09)
DX: I50.31 Acute diastolic (congestive) heart failure (principal); J96.21 Acute and chronic respiratory failure with hypoxia; I48.92 Unspecified atrial flutter; J44.9 Chronic obstructive pulmonary disease, unspecified; J84.10 Pulmonary fibrosis, unspecified; I27.20 Pulmonary hypertension, unspecified; I48.91 Unspecified atrial fibrillation; Q21.1 Atrial septal defect; D75.1 Secondary polycythemia; I36.1 Nonrheumatic tricuspid (valve) insufficiency; Z85.9 Personal history of malignant neoplasm, unspecified; Z99.81 Dependence on supplemental oxygen; Z87.891 Personal history of nicotine dependence; Z66 Do not resuscitate
CPT/HCPCS: 84484-ER; 96374; 97116-GP; 97161-GP; 97166-GO; 97535-GO; J0282; J1650; J1940; J2250; J2704; J2930; J7613; Q9967